=== PATIENT | male | born 1960 | race African-American/Black ===

== ENCOUNTER 2018-06-18 09:00 | Inpatient (IN) | payer OTHER ==
[~2018-06-18 09:00] MED LIST: BUPIVACAINE 0.5% 10 ML SDV ONE; HYDROmorphONE/DILAUDID 2 MG/ML INJ IVP PRN; LIDOCAINE 2% 5 ML SDV ONE; LR 500 ML IV PRN; MEPERIDINE 25 MG/0.5 ML AMP IVP PRN; METOCLOPRAMIDE 10 MG/2 ML VIAL IVP PRN; MIDAZOLAM 2 MG/2 ML VIAL ONE; NALOXONE HCL 0.4 MG/ML INJ IVP PRN; ONDANSETRON 4 MG/2 ML VIAL IVP PRN; ONDANSETRON 4 MG/2 ML VIAL ONE; PHENYLEPHRINE HCL 100 MCG/ML SYR IVP PRN; POVIDONE-IODINE 20 ML in SODIUM CL IRRIG SOLUTION 500 ML IRR ONE; PROMETHAZINE HCL 25 MG/ML INJ IVP PRN; PROPOFOL 200 MG/20 ML VIAL ONE; PROPOFOL/EMULSION 500 MG/50 ML BOTTLE IV ONE; ROPIVACAINE 0.2% 80 MG, EPINEPHrine 0.2 MG, KETOROLAC TROMETHAMINE 30 MG in SYRINGE 0 ML IU ONE; TRANEXAMIC ACID 2,000 MG in NS 100 ML IV ONE; TRANEXAMIC ACID 3,000 MG in NS (SYRINGE) 50 ML IRR ONE; fentaNYL 100 MCG/2 ML INJ IVP PRN; oxyCODONE IR 5 MG TAB PO PRN
[2018-06-24] MEDS ORDERED: TRANEXAMIC ACID 3,000 MG in NS (SYRINGE) 50 ML IRR ONE (06:00)
[2018-06-24] MEDS ORDERED: POVIDONE-IODINE 20 ML in SODIUM CL IRRIG SOLUTION 500 ML IRR ONE (06:00)
[2018-06-24] MEDS ORDERED: TRANEXAMIC ACID 2,000 MG in NS 100 ML IV ONE (06:00)
[2018-06-24] MEDS ORDERED: ROPIVACAINE 0.2% 80 MG, EPINEPHrine 0.2 MG, KETOROLAC TROMETHAMINE 30 MG in SYRINGE 0 ML IU ONE (06:00)
[2018-06-24] MEDS ORDERED: ceFAZolin 2 GM/DEXTROSE 100 ML IV ONE ×2 (09:30→11:49)
[2018-06-24] MEDS ORDERED: FAMOTIDINE 20 MG TAB PO ONE ×2 (11:00→11:49)
[2018-06-24] MEDS ORDERED: ONDANSETRON 4 MG/2 ML VIAL IVP ONE ×2 (11:00→11:49)
[2018-06-24] MEDS ORDERED: DEXAMETHASONE 4 MG/ML VIAL IVP ONE ×2 (11:00→11:49)
[2018-06-24] MEDS ORDERED: GABAPENTIN 300 MG CAP PO ONE ×2 (11:00→11:49)
[2018-06-24] MEDS ORDERED: ACETAMINOPHEN 325 MG TAB PO ONE (11:49)
[2018-06-24] MEDS ORDERED: LIDOCAINE 1% 2 ML INJ ID PRN (11:51)
[2018-06-24] MEDS ORDERED: LR 1,000 ML IV ONE (11:51)
[2018-06-24] MEDS ORDERED: ceFAZolin 1 GM/5 ML SYR ONE (13:26)
[2018-06-24] MEDS ORDERED: TRANEXAMIC ACID 3,000 MG/50 ML BAG IRR ONE (13:26)
[2018-06-24] MEDS ORDERED: PROPOFOL/EMULSION 500 MG/50 ML BOTTLE IV ONE (13:56)
[2018-06-24] MEDS ORDERED: LIDOCAINE 2% 5 ML SDV ONE (13:58)
--- NOTE | 2018-06-24 14:05 | PDANEPAE ---
ANE History of Present Illness left hip OA ANE Past Medical History - Cardiovascular History Hx Hypertension: No Hx Arrhythmias: No Hx Chest Pain: No Hx Coronary Artery / Peripheral Vascular Disease: No Hx CHF / Valvular Disease: No Hx Palpitations: No - Pulmonary History Hx COPD: No Hx Asthma/Reactive Airway Disease: No Hx Recent Upper Respiratory Infection: No Hx Oxygen in Use at Home: No Hx Sleep Apnea: No Sleep Apnea Screening Result - Last Documented: Positive Pulmonary History Comment: SLIGHT URI 05/2018 - Neurologic History Hx Cerebrovascular Accident: No Hx Seizures: No Hx Dementia: No - Endocrine History Hx Diabetes: No Obesity: yes - Renal History Hx Renal Disorders: Yes Renal History Comment: KIDNEY STONES - Liver History Hx Hepatic Disorders: No - Neurological & Psychiatric Hx Hx Neurological and Psychiatric Disorders: No - Cancer History Hx Cancer: No - Congenital Disorder History Hx Congenital Disorders: No - GI History Hx Gastrointestinal Disorders: No - Other Health History Other Health History: OSTEOARTHRITIS - Chronic Pain History Chronic Pain: Yes (LT HIP) - Surgical History Prior Surgeries: RT TOTAL HIP 2009. TONSILLECTOMY ANE Review of Systems Review of systems is: negative Review of Systems: - Exercise capacity METS (RN): 4 METS ANE Patient History - Allergies Allergies/Adverse Reactions: No Known Allergies Allergy (Verified 06/05/18 10:13) - Home Medications Home medications: home medication list seen and reviewed Home Medications: Naproxen Sodium [Aleve 220 MG (*)] 220 mg PO BID PRN 06/05/18 [Last Taken ] celeCOXIB [Celebrex (*)] 200 mg PO BID 06/05/18 [Last Taken 06/24/18 09:30] Acetaminophen 06/24/18 [Last Taken 06/23/18] - NPO status NPO Since - Liquids (Date): 06/24/18 NPO Since - Liquids (Time): 09:30 NPO Since - Solids (Date): 06/23/18 NPO Since - Solids (Time): 19:30 - Anes Hx Anes Hx: no prior problems - Smoking Hx Smoking Status: Never smoked ANE Labs/Vital Signs - Vital Signs Blood Pressure: 133/82 Heart Rate: 60 Respiratory Rate: 16 O2 Sat (%): 96 Height: 189.23 cm Weight: 117.934 kg ANE Physical Exam - Airway Neck exam: FROM Mallampati Score: Class 1 Mouth exam: normal dental/mouth exam - Pulmonary Pulmonary: no respiratory distress - Cardiovascular Cardiovascular: regular rate and rhythym - ASA Status ASA Status: II ANE Anesthesia Plan Anesthesia Plan: spinal
--- NOTE | 2018-06-24 15:24 | PDHPUP ---
History & Physical Update H&P update statement: This history and physical update is based on an assessment of the patient which was completed after admission or registration (within 24 hours), but prior to the surgery/procedure. H&P update: H&P reviewed & patient examined
[2018-06-24] MEDS ORDERED: MIDAZOLAM 2 MG/2 ML VIAL ONE (16:07)
[2018-06-24] MEDS ORDERED: MIDAZOLAM 2 MG/2 ML VIAL IVP ONE (16:07)
[2018-06-24] MEDS ORDERED: BUPIVACAINE/DEXTROSE 7.5MG/ML 2 ML SPINAL AMP SP ONE (16:09)
[2018-06-24] MEDS ORDERED: fentaNYL 100 MCG/2 ML INJ ONE ×4 (16:37→18:44)
--- NOTE | 2018-06-24 17:10 | POSTANESTH ---
Post Anesthetic Evaluation Cardiovascular Status: Normal, Stable Respiratory Status: Normal, Stable Level of Consciousness/Mental Status: Can Participate in Eval, Alert and Oriented Pain Control: Adequate, Prn Tx Ordered Nausea/Vomiting Control: Adequate, Prn Tx Ordered Complications Possibly Related to Anesthesia: None Noted
[2018-06-24] MEDS ORDERED: HYDROCODONE/APAP 5/325 TAB PO PRN (17:48)
[2018-06-24] MEDS ORDERED: PROMETHAZINE HCL 25 MG/ML INJ IVP PRN ×2 (17:48→18:05)
[2018-06-24] MEDS ORDERED: METOCLOPRAMIDE 10 MG/2 ML VIAL IVP PRN ×2 (17:48→18:05)
[2018-06-24] MEDS ORDERED: LR 500 ML IV PRN (17:48)
[2018-06-24] MEDS ORDERED: oxyCODONE IR 5 MG TAB PO PRN ×2 (17:48→18:05)
[2018-06-24] MEDS ORDERED: ALBUTEROL 3 ML DEYVIAL IH PRN (17:48)
[2018-06-24] MEDS ORDERED: ACETAMINOPHEN 500 MG TAB PO PRN (17:48)
[2018-06-24] MEDS ORDERED: LABETALOL HCL 5 MG/ML 20 ML MDV IVP PRN (17:48)
[2018-06-24] MEDS ORDERED: NALOXONE HCL 0.4 MG/ML INJ IVP PRN (17:48)
[2018-06-24] MEDS ORDERED: ONDANSETRON 4 MG/2 ML VIAL IVP PRN ×2 (17:48→18:05)
[2018-06-24] MEDS ORDERED: DIPHENOXYLATE/ATROPINE LOMOTIL 1 TAB PO PRN (18:05)
[2018-06-24] MEDS ORDERED: traMADol 50 MG TAB PO PRN (18:05)
[2018-06-24] MEDS ORDERED: BISACODYL 10 MG SUPP PR PRN (18:05)
[2018-06-24] MEDS ORDERED: CYCLOBENZAPRINE 10 MG TAB PO PRN (18:05)
[2018-06-24] MEDS ORDERED: TEMAZEPAM 15 MG CAP PO PRN (18:05)
[2018-06-24] MEDS ORDERED: diphenhydrAMINE 25 MG CAP PO PRN (18:05)
[2018-06-24] MEDS ORDERED: LACTULOSE 20 GM/30 ML UDCUP PO PRN (18:05)
[2018-06-24] MEDS ORDERED: NS 500 ML IV PRN (18:05)
[2018-06-24] MEDS ORDERED: PROMETHAZINE HCL 25 MG SUPPR PR PRN (18:05)
[2018-06-24] MEDS ORDERED: ONDANSETRON DISINTEGRATING 4 MG TAB PO PRN (18:05)
[2018-06-24] MEDS ORDERED: POLYETHYLENE GLYCOL 3350 17 GM PKT PO PRN (18:05)
[2018-06-24] MEDS ORDERED: MAGNESIUM HYDROXIDE 30 ML UDCUP PO PRN (18:05)
[2018-06-24] MEDS ORDERED: LR 1,000 ML IV SCH (18:30)
[2018-06-24] MEDS: fentaNYL 100 MCG/2 ML INJ IVP PRN ×4 (18:30→19:07)
[2018-06-24] MEDS ORDERED: HYDROmorphONE/DILAUDID 2 MG/ML INJ ONE (18:42)
[2018-06-24] MEDS: HYDROmorphONE/DILAUDID 2 MG/ML INJ IVP PRN ×3 (18:43→19:08)
[2018-06-24] MEDS ORDERED: oxyCODONE IR 5 MG TAB ONE (19:11)
[2018-06-24] MEDS: SENNOSIDES/DOCUSATE SODIUM TAB PO SCH (21:28)
[2018-06-24] MEDS: FAMOTIDINE 20 MG TAB PO SCH (21:30)
[2018-06-24] MEDS: ASPIRIN 325 MG TAB PO SCH (21:41)
--- NOTE | 2018-06-24 23:38 | GOP ---
DATE OF OPERATION: 06/24/2018 SURGEON: Chun Tirado MD ARM[employer]LE [employer]LLER HANDSTITCHING MACHINE: Matt Marin, [facility], and Silverio Orellana, PAC. ANESTHESIA: General. ANESTHESIOLOGIST: Omer Salas MD. PREOPERATIVE DIAGNOSIS: Left hip severe degenerative arthritis. POSTOPERATIVE DIAGNOSIS: Left hip severe degenerative arthritis. PROCEDURE PERFORMED: A left total hip arthroplasty, uncemented, ceramic femoral head on Highly Cross -linked polyethylene cup liner. FINDINGS: DESCRIPTION OF PROCEDURE: The patient was given 2 g of IV Ancef preoperatively within 60 minutes of surgery. He also received 2000 mg of IV tranexamic acid. He was placed on the operating room table, and Dr. Salas attempted a spinal anesthetic which was unsuccessful. He was then placed supine an d given general anesthesia. A Brennan catheter was not used. He wore a VESTA stocking and SCD on the no noperative leg. He was rolled to the right lateral decubitus position. The position was secured wit h the pegboard table attachment. An axillary roll was used, and all pressure points were carefully p added. I was careful to lock his pelvis in a vertical position. He was a very large muscular man wh ich made positioning difficult. His perineum was isolated with plastic adhesive drapes. The left hi p and left lower extremity were prepped with ChloraPrep. They were draped free using sterile sheets, stockinette, and Ioban plastic adhesive drapes. The [employer] time-out was performed to verify the correct surgical side and site and the correct patient identity. The [place] time-out was also performed. I made a 7 to 8 inch straight oblique posterolateral skin incision. Subcutaneous tissues were sharpl y divided, and hemostasis was obtained using electrocautery. He was a large man with a deep layer of subcutaneous fat. This required a larger than average skin incision. The fascia ivory was identifie d and split along the axis of its fibers. I curved posteriorly and proximally, and split the fascia of the gluteus tristen and bluntly split the muscle fibers in line with their orientation. The Carlos idania self-retaining retractor was inserted. His sciatic nerve was located, partially exposed, and pro tected throughout the procedure. The external rotators and the posterior hip capsule were divided as separate layers at the base of the femoral neck, tagged, and reflected posteriorly. A smooth 8-inch Steinmann pin was inserted vertically into the ilium, superior to the acetabulum. An 8-inch drill b it was inserted vertically into the greater trochanter and parallel to the first pin. The distance b etween the two was measured for leg length reference. His femoral head was dislocated posteriorly. Severe degenerative changes were present on the femoral head. The femoral neck was osteotomized at t he appropriate level and inclination. I was careful to preserve all the posterior capsule and most of the anterior capsule. The remnant of his damaged labrum was completely excised. I prepared the femur first. This allowed me to retail merchandiser technician the amount of natural femoral neck anteversion. This, in turn, allowed me to later determine the correct amount of cup anteversion. He only had ab out 10 degrees of natural femoral neck anteversion. The canal was opened laterally with a box chisel . I hand broached sequentially up to a size 7. The size 7 high offset broach was used as a trial st em. I was careful to lateralize adequately. Appropriate retractors were inserted to expose the acetabulum. The acetabulum was reamed sequentiall y up to 58 mm. I selected the 58 mm [place] Trident II Tritanium cluster hole hemispherical shell. This was tapped securely into place in the proper degree of inclination anteversion. I used the savage sverse acetabular ligament and other acetabular landmarks to help me properly orient the cup. Fixati on was very tight, and I did not think supplemental screws were necessary. I performed a series of trial reductions to determine length and stability. I took a cross-table int raoperative AP pelvis x-ray. I concluded that the size 7 high offset stem with a +2.5 mm neck length with a 36 mm head and a 0-degree trial liner gave me the proper combination of appropriate length an d good anterior and posterior stability. I recognized that I may be lengthening him a couple of mill imeters. However, I wanted the additional stability. The flush [place] X3 Highly Cross-linked polyethylene liner was inserted and tapped securely into kerrie ce. I selected the [place] Accolade II stem in a size 7 with high offset. This was inserted press-f it and was very tight. I did one final trial reduction and confirmed that the +2.5 mm neck length wi th the 36 mm head was the proper combination. I selected the Tamara Biolox Delta ceramic head with an outside diameter of 36 mm and a neck length of 2.5 mm. This was tapped securely onto the clean tr unnion. His acetabulum was irrigated and cleaned, and the hip was reduced one final time. He had ex cellent anterior and posterior stability. 40 mL of the joint anesthetic cocktail were injected into the capsule, the deep musculature, and the subcutaneous tissues around the skin edges. The joint was thoroughly irrigated one final time with a dilute Betadine solution. His sciatic nerve was reinspected and looked unharmed. The external rota tors and the posterior hip capsule were repaired in separate layers with #2 FiberWire sutures through drill holes in the greater trochanter. This provided a strong posterior capsule and external rotato r repair. The fascia ivory was closed first with two [id number] #2 FiberWire sutures followed by a running #2 barbed Ethicon Stratafix PDO suture. The subcutaneous tissues were closed with a runni ng 0 barbed Ethicon Stratafix Monoderm suture. The skin was closed with a running 3-0 barbed Ethicon Stratafix Monoderm subcuticular suture. The skin edges were reapproximated and sealed with Dermabon d glue. The wound was covered with large waterproof Mepilex surgical dressing. The Mepilex sacral d ressing was also applied. A long-leg VESTA stocking and SCD were applied to his left lower extremity. He wore a stocking and SCD on the opposite leg during the procedure. An abduction pillow was placed between his knees. He was awakened from anesthesia and rolled to the supine position on his [facility]. He was taken to PACU in satisfactory condition. There were no recognized intraoperative complications. The estimated blood loss was about 600 mL. The exposure was difficult because of his size. The spon ge and needle counts were correct on two occasions. I used a Tamara Trident II Tritanium hemispherical cluster hole acetabular shell with an outside smith meter of 58 mm. The liner was a Tamara X3 flush Highly Cross-linked liner with an inside diameter o f 36 mm. The femoral component was a high offset Accolade II stem in a size 7 and press-fit. The fe moral head was a Tamara Biolox Delta ceramic head with a +2.5 mm neck length and a 36 mm outside smith meter. Matt Marin, PARATRANSIT DRIVER, and Rishi Orellana, PAC, acted as surgical assistants. Their assistance was a me dical necessity for safe completion of the procedure. /[id number]/MODL
[2018-06-25] MEDS: KETOROLAC 15 MG/1 ML SDV IVP SCH ×2 (00:29→05:25)
[2018-06-25] MEDS: ACETAMINOPHEN 325 MG TAB PO SCH ×2 (00:32→05:25)
[2018-06-25] MEDS: ceFAZolin 2 GM/DEXTROSE 100 ML IV SCH ×2 (00:33→09:08)
--- NOTE | 2018-06-25 07:25 | SOAPPROG ---
SOAP Progress Note Assessment/Plan: Assessment: POD #1. Awake, alert, afebrile. Normal sciatic nerve function. H/H ok. VSS. Dressing clean and dry. Ambulating in room without problems. Plan: PT/OT today D/c to home later today. 06/25/18 07:24 Objective: Vital Signs Temp Pulse Resp BP Pulse Ox 37.1 C 62 18 106/53 L 95 06/25/18 04:00 06/25/18 04:00 06/25/18 04:00 06/25/18 04:00 06/25/18 04:00 Laboratory Results 06/25/18 04:47 06/24/18 06/25/18 06/26/18 05:59 05:59 05:59 Intake Total 3390 Output Total 2005 Balance 1385 ICD10 Worksheet Patient Problems: Problems Problem Status Onset Osteoarthritis of left hip Acute
[2018-06-25 07:34] VITALS: BP 115/56
--- NOTE | 2018-06-25 07:35 | PDMN ---
Medical Necessity Medical necessity: Pt meets inpt criteria per MD order and [facility] S-560, Hip Arthroplasty, Medicare inpt only list. 58 y/o w/hx L hip severe degenerative arthritis admitted for L NYA and post-op care.
--- NOTE | 2018-06-25 08:40 | GDS ---
ADMISSION DIAGNOSIS: Severe left hip osteoarthritis. DISCHARGE DIAGNOSIS: Severe left hip osteoarthritis. OPERATIONS PERFORMED: A left total hip arthroplasty, ceramic femoral head on highly cross-linked ketty yethylene cup liner. COMPLICATIONS: None. CONDITION ON DISCHARGE: Improved. DESCRIPTION OF HOSPITAL COURSE: The patient was admitted to the hospital on the day of surgery. His admission white blood cell count, H and H were all normal. The same day under a failed attempt at a Marcaine spinal, the patient received general anesthesia and underwent a left total hip arthroplasty . He was treated with multimodal DVT prophylaxis including VESTA stockings, SCDs, and early mobilizati on. On the 1st postoperative day, the patient's H and H were 11.7 and 33.2. He did not require any trans fused blood. He was seen by Physical therapy and made good progress with hip range of motion exercis es and ambulation. Brennan catheter was not required. He was able to void on his own following surger y. By the time of discharge, the patient was independent with his walker and afebrile. His dressing was clean and dry. DISPOSITION: The patient is discharged to his home. He will go directly to outpatient physical therapy asst apy. He has prescriptions for tramadol, oxycodone, and Celebrex for pain control. Full-strength asp irin x21 days. VESTA stockings x1 week. Abduction pillow while in bed. He has a followup appointment on July 03. He is to call the office sooner if he has any problems or questions. Copy requested to: PCP listed in [employer] /[id number]/MODL
[2018-06-25] MEDS ORDERED: FERROUS SULFATE 140 MG TAB.ER PO SCH (09:00)
[2018-06-25] MEDS: ASPIRIN 325 MG TAB PO SCH (09:08)
[2018-06-25] MEDS: SENNOSIDES/DOCUSATE SODIUM TAB PO SCH (09:08)
[2018-06-25] MEDS: FAMOTIDINE 20 MG TAB PO SCH (09:09)
--- NOTE | 2018-06-25 11:32 | ASMTLACE ---
LACE Length of stay for Answers: 2 days current admission Acuity / Level of Answers: Yes Care: Did the patient have an inpatient admission? Comorbidities - select Answers: Opioid dependence all that apply / Chronic pain # of Emergency department Answers: 0 visits in the last 6 months Score: 9 Date Signed: 06/25/2018 11:32 AM Electronically Signed By:ODETTE Mckeon
--- NOTE | 2018-06-25 11:35 | ASMTCMCOM ---
CM Note CM Note Notes: Pt had planned OA of hip. PT rec home/outpatient. MD rec outpatient. No CM d/c needs identified. Pt resides with spouse. Date Signed: 06/25/2018 11:34 AM Electronically Signed By:ODETTE Mckeon
== END 2018-06-25 12:01 | disposition home or self-care (01) | DRG 470 ==
LOC: EDSTATUS 09:30 → F3N 06-24 11:21
PROVIDERS: ADMIT Orthopaedic Surgery; ATTEND Orthopaedic Surgery
PROC: 0SRD0JZ Replacement of Left Knee Joint with Synthetic Substitute, Open Approach (ICD-10-PCS; principal; 2018-06-24 13:15)
DX: M16.12 Unilateral primary osteoarthritis, left hip (principal); Z87.442 Personal history of urinary calculi; Z96.641 Presence of right artificial hip joint; Z23 Encounter for immunization
CPT/HCPCS: 97116-GP; 97161-GP; 97165-GO; G0008; J0171; J0690; J1100; J1170; J1885; J2250; J2405; J2704; J2795; J3010